=== PATIENT | female | born 1945 | race Caucasian/White ===

== ENCOUNTER 2024-03-09 05:33 | Inpatient (IN) | payer MEDICARE, MEDICAID, SELFPAY ==
[2024-03-09] VITALS (21 sets, daily range): BP systolic 134–196; BP diastolic 55–119; PULSE 68–125; RESP 16–30; TEMP 36.6–39.1; O2SAT 98–100
--- NOTE | 2024-03-09 | ECHO_ITS ---
Patient Info Name: Camila Sung Age: 78 years : 1945 Gender: Female Ht: 61 in Wt: 177 lbs BSA: 1.89 m2 HR: 112 bpm BP: 140 / 74 mmHg Heart Rhythm: Sinus Rhythm Technical Quality: Fair Exam Date: 03/09/2024 11:30 AM Exam Location: Echo Lab Patient Status: Inpatient Admit Date: 03/09/2024 Staff Ordering Physician: Orestes Arnold MD Sanforizing Machine Operator: Ac King RDCS Attending Provider: Zay Eckert MD Exam Type: CA echo dop color flow w con Study Info Indications - Abnormal EKG Complete two-dimensional, color flow and Doppler transthoracic echocardiogram is performed with contrast to opacify the left ventricle and to improve the deliniation of the left ventricle endocardial borders. Contrast/Agitated Saline Contrast/Ag. Saline: Definity Amount: 3.00 ml Existing IV Access: Yes Summary 1. Normal left ventricular size with vigorous systolic function and grade 1 diastolic noncompliance. 2. Borderline left atrial enlargement. 3. Normal aortic and mitral valve. Left Ventricle Left ventricular chamber dimension is normal. Left ventricular systolic function is normal, estimated at 65-70%. The left ventricular diastolic function is grade I diastolic dysfunction. Right Ventricle Right ventricular chamber dimension is normal. Left Atria Left atrial chamber dimension is mildly enlarged. Right Atria Right atrial chamber dimension is normal. Aortic Valve The aortic valve is normal. Pulmonic Valve The pulmonic valve is normal. Mitral Valve The mitral valve has normal leaflets. Tricuspid Valve The tricuspid valve leaflets are normal. There is mild tricuspid valve regurgitation. Moderate pulmonary hypertension, estimated pulmonary arterial systolic pressure is Empty. Pericardium/Pleural The pericardium appears normal. Aorta The aortic root size at the sinus of Valsalva is normal. Left Ventricular Outflow Tract Name Value Normal LVOT 2D LVOT Diameter 1.88 cm LVOT Doppler LVOT Peak Gradient 16 mmHg LVOT Mean Gradient 9 mmHg LVOT VTI 30.58 cm LVOT VTI/AV VTI Ratio 0.81 LVOT Stroke Volume 84.76 ml LVOT CO 9.90 l/min LVOT CI 5.23 L/min/m2 Pulmonic Valve Name Value Normal PV Doppler PV Peak Gradient 10 mmHg Mitral Valve Name Value Normal MV Doppler MV Peak Gradient 11 mmHg MV Mean Gradient 6 mmHg MV Decel Ritchie 465.01 cm/s2 MV PHT
--- NOTE | ~2024-03-09 | CT_ITS ---
CT head without contrast Indication: Altered mental status Technique: Serial scans were obtained through the brain without the administration of contrast. Dose reduction technique was used on this scan by utilizing automated exposure control and iterative recon struction technique. The dose-length product (DLP) was 605.33 mGy-cm. Findings: There is no evidence of intracranial hemorrhage, mass lesion, or acute infarct. The ventri cles and subarachnoid spaces are dilated, consistent with mild atrophy. Low attenuation regions are seen within the periventricular white matter bilaterally, likely representing changes from chronic mi crovascular ischemic disease. There is no evidence of edema, mass effect or midline shift. The visu alized paranasal sinuses and mastoid air cells are clear. Impression: No intracranial hemorrhage, mass, or acute infarct. Atrophy and chronic white matter changes, as above. Reviewed, dictated and finalized at location . Impression: No intracranial hemorrhage, mass, or acute infarct. Atrophy and chronic white matter changes, as above.
--- NOTE | ~2024-03-09 | CT_ITS ---
Clinical Indication: Altered mental status CT Scan of the Chest, Abdomen, and Pelvis with Contrast: Technique: Contiguous sections were acquired throughout the chest, abdomen, and pelvis after intraven ous administration of 100 cc of Omnipaque 350. Dose reduction technique was used on this scan by uti lizing automated exposure control and iterative reconstruction technique. The dose-length product (DL P) was 1498.94 mGy-cm. Findings: There is no evidence of any significant mediastinal, hilar or axillary lymphadenopathy. Extensive cor onary artery calcifications are present. No aortic aneurysm or dissection seen. There is no evidence of pleural or pericardial effusion. The lungs are clear. No pulmonary nodules or infiltrates are noted. The liver, spleen, pancreas, and adrenal glands are within normal limits. Cholecystectomy clips are p resent. There is minimal fullness of the bilateral renal collecting systems. Small bilateral nonobstr ucting renal stones are present. No ureteral stone identified in either side. There are atherosclerot ic calcifications of the aorta. No lymphadenopathy. No bowel obstruction or bowel wall thickening. There is no evidence to suggest acute appendicitis. Urinary bladder is prominently distended, but otherwise unremarkable. There is apparent fluid distent ion of prominent thickening of the endometrial stripe/cavity. There is a 3.6 cm hypodense right-sided uterine mass versus adnexal lesion. Impression: Prominent fluid distention versus thickening of the endometrial stripe/cavity. Additional 3.6 cm hypo dense right-sided uterine mass versus adnexal lesion. Uterine neoplasm is not excluded. Pelvic ultras ound recommended for further evaluation. Small bilateral nonobstructing renal stones. Reviewed, dictated and finalized at [facility]. Impression: Prominent fluid distention versus thickening of the endometrial stripe/cavity. Additional 3.6 cm hypodense right-sided uterine mass versus adnexal lesion. [place] rine neoplasm is not excluded. Pelvic ultrasound recommended for further evalua tion. Small bilateral nonobstructing renal stones.
--- NOTE | ~2024-03-09 | US_ITS ---
US pelvic limited Ordering provider: Orestes Arnold MD History: . Uterine mass . Comparison: None. Technique: Transabdominal ultrasound of the pelvis (Doppler ultrasound interrogation techniques used as needed for this exam.) FINDINGS: CERVIX: Normal. UTERUS: Measures 8.2x 3.5x 4.3 cm in length which is within normal limits and is anteverted. No myom etrial masses. ENDOMETRIUM: Normal in thickness measuring 15 mm. No endometrial masses, cysts or fluid. CUL DE SAC: No free fluid. RIGHT OVARY: Normal in size measuring 3x 1.9x 2.5 cm. Normal echotexture. Doppler vascular flow prese nt. LEFT OVARY: Normal in size measuring 2.2x 1.5x 1.9 cm. Normal echotexture. Doppler vascular flow pres ent. ADNEXA: A mass is seen measuring 4.1 x 3.8 x 3.5 centimeters. Calcification is seen. The mass appears near to the cervix possibility of connection to the service is not excluded. IMPRESSION: Right adnexal mass measuring 4.1 x 3.8 x 3.5 cm. calcification is seen in the mass. The mass appears near to the cervix possibility of connection to the service is not excluded. Clinical correlation and follow-up advised. Thickened endometrium. Further evaluation advised. Reviewed, dictated and finalized at location A. IMPRESSION: Right adnexal mass measuring 4.1 x 3.8 x 3.5 cm. calcification is seen in the m ass. The mass appears near to the cervix possibility of connection to the servi ce is not excluded. Clinical correlation and follow-up advised. Thickened endometrium. Further evaluation advised.
--- NOTE | ~2024-03-09 | XR_ITS ---
Portable chest x-ray Comparison: None Clinical History: Altered mental status Findings: Lungs are clear, without focal consolidation or pleural effusion. Cardiomediastinal silho uette is mildly prominent, possibly due to AP technique. Bones and soft tissues are unremarkable. Impression: Clear lungs. Reviewed, dictated and finalized at location . Impression: Clear lungs.
[2024-03-09 05:44] LABS: Glucose Point of Care > 500 mg/dl (65-105)
[2024-03-09] MEDS: HALOPERIDOL LACTATE 5 MG/ML VIAL 2.5 MG IM (05:48)
--- NOTE | 2024-03-09 05:50 | ED.AMS ---
HPI - Altered Mental Status General Chief Complaint: Altered Mental Status Stated Complaint: altered mental status, high blood sugar Time Seen by Provider: 03/09/24 05:35 History of Present Illness HPI narrative: 78-year-old female presenting to the emergency department for evaluation for altered mental status. Patient is diabetic and lives with her sister. EMS states that the sister called due to the patient being more confused and being unable to give her her insulin. Patient did not receive any insulin today. Patient did have a glucose stick of 590 by EMS. Upon arrival to the emergency department patient is irritated and combative. Patient is unwilling to participate in the exam. Related Data Allergies Allergy/AdvReac Type Severity Reaction Status Date / Time No Known Allergies Allergy Verified 03/09/24 07:17 Review of Systems Review of Systems: All systems reviewed & are unremarkable except as noted in HPI and below PMFSH Past Medical History Medical History Diabetes mellitus Social History Social History Spiritual care concerns: No Exam Narrative: APPEARANCE: Confused. HEAD: normocephalic, atraumatic. EYES: PERRLA/EOMI, conjunctivae clear. NOSE: Normal no drainage EARS:TMS clear with good light reflex. THROAT: Pharynx clear, no exudate. NECK: Supple. No adenopathy, no masses. RESPIRATORY: Airway patent, respirations nonlabored. Clear to auscultation bilaterally, no rales, rhonchi, wheezing. CARDIOVASCULAR: Regular rate and rhythm without murmurs rubs or gallops. ABDOMINAL: Soft, nontender, nondistended, normal bowel sounds MUSCULOSKELETAL: Moves all extremities. Strength/ROM intact, No edema, No calf tenderness. NEURO: Alert. Cranial nerves II through XII intact. Grossly intact SKIN: Warm, dry. Normal Color Course Vital Signs Vital signs: Vital Signs Temperature 102.1 F H 03/09/24 05:35 Temperature 97.1 F L 03/13/24 05:43 Pulse Rate 69 03/13/24 05:43 Respiratory Rate 16 03/13/24 05:43 Blood Pressure 165/60 H 03/13/24 05:43 Pulse Oximetry 100 03/13/24 05:43 Oxygen Delivery Room Air 03/13/24 08:20 Fraction of Inspired Oxygen 21 03/10/24 10:27 MDM - Altered Mental Status MDM Narrative Medical decision making narrative: 78-year-old female presented emergency department for evaluation for altered mental status. Patient is diabetic and patient arrives to emergency department in DKA. Patient was treated with IV fluids and started on insulin bolus and insulin infusion. Patient did have a low-grade fever upon arrival to the emergency department. Patient has no leukocytosis and a stable hemoglobin of 12.5. Patient did have hyponatremia and hyperkalemia along with ROSALIND. Case was discussed with the restorer lace and textiles the patient was accepted to the ICU. Prior to the ICU they requested imaging brain chest abdomen pelvis. At time of sign-out this imaging is pending. Differential Diagnosis Differential diagnosis: Likely altered mental status and sepsis Lab Data Attestation: I reviewed the patient's lab results. 03/13/24 05:55 03/13/24 05:55 Labs: Lab Results 03/09/24 03/09/24 03/09/24 Range/Units 05:42 05:59 06:05 WBC 7.1 (4.5-10.0) K/mm3 RBC 4.13 L (4.2-5.4) M/mm3 Hgb 12.5 (12.0-15.0) g/dL Hct 38.9 (37.0-47.0) % MCV 94.2 (80-100) fl MCH 30.3 (26-34) pg MCHC 32.1 (32-36) g/dl RDW 15.2 H (11.5-14.5) % Plt Count 177 (150-375) k/mm3 MPV 12.9 H (7.4-10.4) fl Immature Gran % (Auto) 0.6 H (0-0.5) % Neut % (Auto) 78.9 H (45.5-73.1) % Lymph % (Auto) 15.7 L (18.3-44.2) % [place] % (Auto) 4.1 (2.6-8.5) % Eos % (Auto) 0.1 (0-4.4) % Baso % (Auto) 0.6 (0.2-1.2) % Lymph # (Auto) 1.11 (0.9-3.2) K/mm3 [place] # (Auto) 0.3 (0.1-0.6) K/mm3 Eos # (Auto) 0.0
[2024-03-09] MEDS: ACETAMINOPHEN 650 MG SUPPOSITORY RECTAL (05:57)
[2024-03-09] MEDS: SODIUM CHLORIDE 0.9% IV 1,000 ML 999 ML IV CONT (06:10)
[2024-03-09 06:13] LABS: Basophils Percent Auto 0.6 % (0.2-1.2); Eosinophils Percent Auto 0.1 % (0-4.4); Hematocrit 38.9 % (37.0-47.0); Hemoglobin 12.5 g/dL (12.0-15.0); Immature Granulocyte Absolute 0.04 K/mm3 (0.00-0.031); Immature Granulocyte Percent A 0.6 % (0-0.5); Immature Platelet Fraction Pct 10.1 % (0.9-11.2); Lymphocytes Absolute Auto 1.11 K/mm3 (0.9-3.2); Lymphocytes Percent Auto 15.7 % (18.3-44.2); Mean Corpuscular HGB Conc 32.1 g/dl (32-36); Mean Corpuscular Hemoglobin 30.3 pg (26-34); Mean Corpuscular Volume 94.2 fl (80-100); Mean Platelet Volume 12.9 fl (7.4-10.4); Monocytes Absolute Auto 0.3 K/mm3 (0.1-0.6); Monocytes Percent Auto 4.1 % (2.6-8.5); Neutrophils Absolute Auto 5.6 K/mm3 (1.3-6.7); Neutrophils Percent Auto 78.9 % (45.5-73.1); Platelet Count Result 177 k/mm3 (150-375); Red Blood Count 4.13 M/mm3 (4.2-5.4); Red Cell Distribution Width 15.2 % (11.5-14.5); White Blood Count 7.1 K/mm3 (4.5-10.0)
--- NOTE | 2024-03-09 06:23 | ECG_ITS ---
Test Date: 2024-03-09 06:25:25 Measurements Intervals [place] Rate: 122 P: 89 GA: 153 QRS: -19 QRSD: 91 T: 120 QT: 196 QTc: 280 Interpretive Statements SINUS OR ECTOPIC ATRIAL TACHYCARDIA ST-T WAVE ABNORMALITY IN ANTEROLAT/HIGH LAT LEADS- CONSIDER ISCHEMIA BASELINE ARTIFACT- I, II, III, AVF, V1-V3 ABNORMAL ECG No previous ECG available for comparison Electronically Signed On 03-09-2024 08:37:26 CDT by Tay Mcdonald D.O.
[2024-03-09 06:25] LABS: Beta-Hydroxybutyrate/Acetoacetate 4.14 mmol/L (0.02-0.27)
[2024-03-09 06:27] LABS: Alanine Aminotransferase 14 U/L (6-35); Albumin Level 4.5 g/dL (3.5-5.1); Alkaline Phosphatase 242 U/L (38-126); Anion Gap 23 mmol/L (4-12); Aspartate Amino Transferase 25 U/L (14-36); Blood Urea Nitrogen 18 mg/dL (7-17); Calcium 9.1 mg/dL (8.4-10.2); Carbon Dioxide 13 mmol/L (22-30); Chloride 96 mmol/L (98-107); Estimated CRCL calculation 31 ml/min; Estimated Glomerular Filt Rate 40; Potassium 5.1 mmol/L (3.4-5.0); Sodium 132 mmol/L (137-145)
--- NOTE | 2024-03-09 06:28 | PC.NURSE ---
Upon arrival to ED patient was combative and thrashing and swatting at staff and EMS. Patient was uncooperative with getting vitals, set up on the ophthalmic surgeon, and removed her IV that EMS had placed. Patient stated come on , I want to leave , and fuck off . Patient would not sit still as nursing staff asked for cooperation. Patient appeared alert to voice, but not making any sense in speech. EDP Dr. Hernandez notified who VRBO 2.5mg Haldol IM. Patient was given Haldol in the right thigh at 0548. Patient still was uncooperative with staff and still thrashing and swatting at staff. At [address] Hernandez VRBO soft restraints as patient was still uncooperative and combative and vitals were yet to be obtained. Patient placed in soft restraints bi-lateral ankle and wrists.
[2024-03-09 06:29] LABS: INR 0.9; Prothrombin Time 12.6 Seconds (11.1-14.7)
[2024-03-09 06:32] LABS: Appearance Urine Clear (Clear); Bacteria Urine None Seen /hpf; Bilirubin Urine Negative (Negative); Blood Urine 2+ (Negative); Color Urine Yellow (Yellow); Glucose Urine UA 3+ mg/dL (Negative); Ketones Urine 1+ mg/dL (Negative); Leukocyte Esterase Ur Negative LEU/UL (Negative); Nitrate Urine Negative (Negative); Non Pathogenic Casts 0-2; Protein Urine Negative (Negative); Specific Grav Ur 1.021 (1.001-1.035); Squamous Epithelial Cell Urine None Seen /hpf (Few); Urobilinogen Urine 0.2 mg/dL (<2.0); WBC Urine 0-5 /hpf (0-3)
[2024-03-09 06:36] LABS: Add Urine Microscopic? YES
[2024-03-09 06:37] LABS: Glucose 750 mg/dL (65-110)
[2024-03-09] MEDS: INSULIN HUMAN REGULAR (*BKC) 100 UNITS/ML IV PUSH (06:44)
[2024-03-09 06:48] LABS: Lactic Acid Reflex 5.9 mmol/L (0.7-2.0)
[2024-03-09] MEDS: SODIUM CHLORIDE 0.9% IV 1,000 ML 150 ML IV CONT (06:49)
[2024-03-09] MEDS: INSULIN HUMAN REGULAR (*BKC) 100 UNITS in SODIUM CHLORIDE 0.9% IV 99 ML 8 UNITS IV CONT (07:08)
[2024-03-09 07:41] LABS: Phosphorus 3.2 mg/dL (2.5-4.5)
[2024-03-09 07:50] LABS: Anion Gap 23 mmol/L (4-12); Blood Urea Nitrogen 17 mg/dL (7-17); Calcium 8.8 mg/dL (8.4-10.2); Carbon Dioxide 13 mmol/L (22-30); Chloride 102 mmol/L (98-107); Estimated CRCL calculation 31 ml/min; Estimated Glomerular Filt Rate 40; Glucose 644 mg/dL (65-110); Potassium 4.3 mmol/L (3.4-5.0); Sodium 138 mmol/L (137-145)
[2024-03-09 08:15] LABS: Influenza A QL RT-PCR Negative (Negative); Influenza B QL RT-PCR Negative (Negative); RSV RNA, RT-PCR Negative (Negative); SARS-CoV-2 RNA PCR Negative (Negative)
[2024-03-09 08:31] LABS: Hemoglobin A1C > 14.0 % (<5.7)
[2024-03-09 08:50] LABS: Glucose Point of Care > 500 mg/dl (65-105)
[2024-03-09 08:53] LABS: Procalcitonin 0.1 ng/mL
[2024-03-09 09:16] LABS: Reflex Lactic Acid Yes or No Add Lactic
--- NOTE | 2024-03-09 09:19 | WPDCNINT ---
Assessment and Plan Assessment and plan (1) DKA (diabetic ketoacidosis): Code(s): E11.10 - Type 2 diabetes mellitus with ketoacidosis without coma Status: Acute Assessment and Plan: Patient presented with DKA with elevated beta hydroxybutyrate fine gap and blood glucose Patient was given 1 L IVF bolus and started on infusion. I will give additional 1 L bolus Patient will be started on Insulin infusion and Q1H glucose monitoring will be done Serial labs ordered Replace electrolytes as needed (2) Altered mental status: Code(s): R41.82 - Altered mental status, unspecified Status: Acute Assessment and Plan: Patient at this time is confused agitated uncooperative although she is awake and moves all [address] was negative Appears to be likely toxic metabolic encephalopathy. I am not aware of what medications patient states at this time Check TSH, urine drug screen Start Precedex at this time for agitation Physical restraints for patient's and staff's safety until patient is calm and cooperative (3) ROSALIND (acute kidney injury): Code(s): N17.9 - Acute kidney failure, unspecified Status: Acute Assessment and Plan: Presented with creatinine of 1.3 Baseline creatinine unknown. Past medical history unknown Will give IV fluids and check CK level Check renal ultrasound Monitor urine output electrolytes and creatinine Place Dougherty catheter for accurate I&Os and patient's mental status (4) Uterine mass: Code(s): N85.8 - Other specified noninflammatory disorders of uterus Status: Acute Assessment and Plan: Will obtain pelvic ultrasound (5) Sepsis: Code(s): A41.9 - Sepsis, unspecified organism Status: Acute Assessment and Plan: Patient met criteria for sepsis presentation although this could be just SIRS. She was febrile in ER and has elevated lactic acidosis No other objective evidence infection at this time UA was negative and CT scan did not show any evidence of pneumonia. Procalcitonin level was low Lactic acidosis can be secondary to metformin Blood cultures have been sent and are pending Will start empiric antibiotics at least for 48 hours until culture is also back Vancomycin and cefepime (6) Abnormal EKG: Code(s): R94.31 - Abnormal electrocardiogram [ECG] [EKG] Status: Acute Assessment and Plan: EKG reviewed Check echo and serial troponins Plan DVT prophylaxis -Lovenox Stress ulcer prophylaxis -Protonix Nutrition - npo Code Status -patient is DNR and DNI as per patient's sisters assessment of her wishes which she has communicated to her in the past multiple times. Total Critical Care Time -40 minutes Due to a high probability of clinically significant, life threatening deterioration, the patient required my highest level of preparedness to intervene emergently and I personally spent this critical care time directly and personally managing the patient. This critical care time included obtaining a history; examining the patient; pulse oximetry; ordering and review of studies; arranging urgent treatment with development of a management plan; evaluation of patient's response to treatment; frequent reassessment; and discussions with other providers. It was exclusive of separately billable procedures and treating other patients and teaching time. Please see Assessment and Plan section and the rest of the note for further information on patient assessment and treatment Conversion Worker Consult Note Consult date: 03/09/24 Reason for consult: DKA, sepsis, altered mental status HPI: Camila Sung is a 78 year old female with past medical history of diabetes was brought by her sister to the hospital with altered mental status and high blood sugars. Patient is unable to provide any meaningful history. I called the cell phone number listed for her sister's contact but no answer hence history is obtained from physician sign-out
[2024-03-09 09:44] LABS: Lactic Acid 4.7 mmol/L (0.7-2.0)
[2024-03-09 09:54] LABS: Glucose Point of Care 405 mg/dl (65-105)
[2024-03-09 09:56] LABS: Creatine Kinase 43 U/L (30-135)
[2024-03-09 10:03] LABS: Troponin I < 0.012 ng/mL (0.000-0.034)
--- NOTE | 2024-03-09 10:30 | PC.NURSE ---
This patient, Camila Sung, was admitted to Intensive Care Unit-2. Patient/family oriented to hospital policies and general routines including ID bracelet, bed and alarms, visiting hours, pain management, procedures, bathroom and other care routines, personal items, smoking policy, room service/diet, and visiting hours. Information on how to activate the Rapid Response Team has been discussed. Patient/Family are encouraged to report perceived risks to care and to ask questions if they do not understand what they are told or what they should do.
--- NOTE | 2024-03-09 10:35 | PC.NURSE ---
pt arrived to floor with insulin drip running at 8units/hr, no titration was made by HEADER DOCK based on latest blood sugar; pt not alert and oriented, only occasionally nods yes or no to questions
[2024-03-09] MEDS: LACTATED RINGERS 1,000 ML 999 ML IV CONT (10:48)
[2024-03-09] MEDS: CEFEPIME 2 GM/NS 50 ML 2 GM/50 ML BAG IVPB (10:50)
[2024-03-09 11:07] LABS: Amphetamine Screen Urine Negative (Negative); Barbiturate Screen Urine Negative (Negative); Benzodiazepines Screen Urine Negative (Negative); Cannabinoid Screen Urine Negative (Negative); Cocaine Screen Urine Negative (Negative); Methadone Screen Urine Negative (Negative); Opiate Screen Urine Negative (Negative); Phencyclidine Screen Urine Negative (Negative)
[2024-03-09 11:10] LABS: Glucose Point of Care 323 mg/dl (65-105)
[2024-03-09] MEDS: VANCOMYCIN 2,000 MG/NS 500 ML 2,000 MG/500 ML BAG 250 MG IVPB (11:19)
[2024-03-09 11:46] LABS: Lipase 137 U/L (23-300)
[2024-03-09] MEDS: PERFLUTREN LIPID MICROSPHERES 1.5 ML VIAL DILUTED TO 10 ML TOTAL VOLUME IV PUSH (11:53)
--- NOTE | 2024-03-09 11:54 | IVDEFINITY ---
Prior to administration of IV Definity the patient was educated on the risks and benefits of the imaging enhancing agent including potential adverse side effects. The patient verbalized understanding. Allergies were verified. No exclusion criteria were identified and at least one of the following inclusion criteria were met: 1) physician request, 2) patient technically difficult to image (per the [place] [employer] guidelines of two or more segments not discernable within the apical view), or 3) questionable left ventricular function. ?
[2024-03-09 12:08] LABS: Glucose Point of Care 228 mg/dl (65-105)
[2024-03-09 12:25] LABS: MRSA (PCR) DETECTED (NOT DETECTE)
[2024-03-09 12:57] LABS: Anion Gap 12 mmol/L (4-12); Blood Urea Nitrogen 15 mg/dL (7-17); Calcium 8.5 mg/dL (8.4-10.2); Carbon Dioxide 17 mmol/L (22-30); Chloride 110 mmol/L (98-107); Estimated CRCL calculation 40 ml/min; Estimated Glomerular Filt Rate 54; Glucose 199 mg/dL (65-110); Phosphorus 1.7 mg/dL (2.5-4.5); Potassium 3.8 mmol/L (3.4-5.0); Sodium 139 mmol/L (137-145)
[2024-03-09 13:09] LABS: Glucose Point of Care 156 mg/dl (65-105)
[2024-03-09] MEDS: KCL 20 MEQ/D5/0.45% SOD CHL 1,000 ML 150 ML IV CONT (13:15)
[2024-03-09] MEDS: INSULIN GLARGINE (*BKC) 100 UNITS/ML 15 UNITS SUB-Q (13:35)
--- NOTE | 2024-03-09 13:55 | PC.NURSE ---
Addendum entered by Tiffanie Macario RN 03/09/24 13:58: home med rec at this time was done from the external med history Original Note: pt not alert and oriented; attempted to obtain medical history from sister, Caty Dai, but also poor historian. Caty did state that Camila has a history noncompliance with her health care. Per Dr. Arnold's request, awaiting medical records from primary physician and [facility]
[2024-03-09] MEDS: SODIUM CHLORIDE 0.45% 1,000 ML 100 ML IV CONT ×2 (14:36→23:41)
[2024-03-09] MEDS: POTASSIUM PHOS,M-BASIC-D-BASIC 20 MMOL in SODIUM CHLORIDE 0.9% IV 250 ML 64.17 MMOL IVPB (14:37)
[2024-03-09 14:46] LABS: Glucose Point of Care 173 mg/dl (65-105)
--- NOTE | 2024-03-09 15:19 | PM.IMHP ---
H&P: HPI History of Present Illness Date/Time: 03/09/24 15:19 Chief Complaint: Altered mental status Narrative: [age]-year-old female presented to the ER with altered mental status. Patient diabetic and less with the sister. EMS was called a sister found her more confused and was unable to give her her insulin. Her glucose stick by EMS was 590. Patient was irritative and combative in the ER. She was tachycardic and hypertensive and febrile. Laboratory evaluation showed normal WBC hemoglobin was 12.5 blood sugar on BMP was 750. Mildly hyponatremic at 1:32 a.m. acidotic at 13 creatinine 1.3. Lactic acid was 5.9. Was 4.1. Most of the history is taken from medical records patient received IV fluid bolus and started on IV insulin and was admitted to the ICU for further treatment. Review of Systems Review of Systems: ROS unobtainable: Yes unobtainable due to medical condition PMFSH Past Medical History Medical History Diabetes mellitus Social History Social History Spiritual care concerns: No Meds Home Medications and Allergies Home Medications Medication Instructions Recorded Confirmed Type atorvastatin 10 mg tablet 10 mg PO DAILY 03/09/24 03/09/24 History insulin glargine 100 unit/mL (3 10 unit subcut HS 03/09/24 03/09/24 History mL) subcutaneous pen (Lantus Solostar U-100 Insulin) insulin lispro 100 unit/mL 3 unit subcut TIDWM 03/09/24 03/09/24 History subcutaneous pen (Humalog KwikPen (U-100) Insulin) losartan 100 mg tablet 50 mg PO DAILY 03/09/24 03/09/24 History Allergies Allergy/AdvReac Type Severity Reaction Status Date / Time No Known Allergies Allergy Verified 03/09/24 07:17 Vital Signs Vital Signs - 24 hr 03/09/24 05:35 03/09/24 06:07 03/09/24 06:08 Temperature 102.1 F H Pulse Rate 125 H 121 H Respiratory Rate 23 H Blood Pressure 187/117 H Pulse Oximetry Oxygen Delivery 03/09/24 06:09 03/09/24 06:12 03/09/24 06:16 Temperature 100.9 F H Pulse Rate 117 H Respiratory Rate 18 Blood Pressure 192/77 H Pulse Oximetry 100 100 100 Oxygen Delivery Room Air 03/09/24 06:31 03/09/24 06:27 03/09/24 06:46 Temperature 98 F 98 F 98.1 F Pulse Rate 119 H 124 H Respiratory Rate 26 H 25 H Blood Pressure 163/119 H 174/96 H Pulse Oximetry 99 100 Oxygen Delivery 03/09/24 07:03 03/09/24 07:45 03/09/24 08:46 Temperature 98.4 F Pulse Rate 125 H 125 H 108 H Respiratory Rate 20 30 H 24 H Blood Pressure 196/72 H 171/83 H 169/72 H Pulse Oximetry 100 100 99 Oxygen Delivery 03/09/24 09:56 03/09/24 10:45 03/09/24 11:44 Temperature 98.6 F 102.3 F H Pulse Rate 112 H 105 H Respiratory Rate 23 H 24 H Blood Pressure 140/74 138/64 Pulse Oximetry 98 99 99 Oxygen Delivery Room Air 03/09/24 12:00 03/09/24 12:00 03/09/24 14:00 Temperature 101.1 F H Pulse Rate 105 H 104 H 102 H Respiratory Rate 20 Blood Pressure 154/59 H Pulse Oximetry 100 Oxygen Delivery 03/09/24 14:00 Temperature 100.6 F H Pulse Rate 102 H Respiratory Rate 16 Blood Pressure 144/71 H Pulse Oximetry 100 Oxygen Delivery Exam Narrative: General: Pt is awake, agitated and uncooperative. She is physically restrained and fights the exam Lungs/Chest: Trachea central Clear BS B/L, No crackles or wheezing. Cardiac: RRR tachycardia. Normal S1 S2. No murmurs Circulation: Pedal pulses are intact and symmetrical. Abdomen: Normal bowel sounds.. Obese Soft. NT. ND. Extremities: No clubbing, cyanosis or edema. Warm : Dougherty in place Neurologic: Patient is confused awake agitated, physically restrained and she moves all 4 extremities but does not follow any commands. She does not answer any questions, she is not cooperative exam and withdraws her head and closesher eyes on during the examination PERRL no nuchal rigidity Skin: No Rash H&P: R
[2024-03-09 16:46] LABS: Anion Gap 10 mmol/L (4-12); Blood Urea Nitrogen 14 mg/dL (7-17); Calcium 7.8 mg/dL (8.4-10.2); Carbon Dioxide 19 mmol/L (22-30); Chloride 109 mmol/L (98-107); Estimated CRCL calculation 40 ml/min; Estimated Glomerular Filt Rate 54; Glucose 212 mg/dL (65-110); Potassium 3.9 mmol/L (3.4-5.0); Sodium 138 mmol/L (137-145)
[2024-03-09 17:03] LABS: Troponin I 0.058 ng/mL (0.000-0.034)
[2024-03-09 17:09] LABS: Glucose Point of Care 222 mg/dl (65-105)
[2024-03-09] MEDS: INSULIN ASPART (*BKC) 100 UNITS/ML SUB-Q ×3 (17:14→23:41)
[2024-03-09 20:26] LABS: Glucose Point of Care 243 mg/dl (65-105)
[2024-03-09] MEDS: CEFEPIME 1 GM/NS 50 ML 1 GM/50 ML BAG IVPB (20:54)
[2024-03-09] MEDS: ACETAMINOPHEN 325 MG TABLET 650 MG PO (21:10)
[2024-03-09 23:13] LABS: Troponin I 0.061 ng/mL (0.000-0.034)
[2024-03-09 23:45] LABS: Glucose Point of Care 219 mg/dl (65-105)
[2024-03-10] VITALS (11 sets, daily range): BP systolic 124–177; BP diastolic 52–72; PULSE 60–83; RESP 13–20; TEMP 36.2–37.1; O2SAT 99–100; BMI 34.1
[2024-03-10 04:13] LABS: Basophils Percent Auto 0.6 % (0.2-1.2); Eosinophils Absolute Auto 0.1 K/mm3 (0-0.3); Eosinophils Percent Auto 1.9 % (0-4.4); Hemoglobin 9.9 g/dL (12.0-15.0); Immature Granulocyte Absolute 0.03 K/mm3 (0.00-0.031); Immature Granulocyte Percent A 0.4 % (0-0.5); Lymphocytes Absolute Auto 1.96 K/mm3 (0.9-3.2); Mean Corpuscular HGB Conc 31.9 g/dl (32-36); Mean Corpuscular Hemoglobin 30.4 pg (26-34); Mean Corpuscular Volume 95.1 fl (80-100); Mean Platelet Volume 12.8 fl (7.4-10.4); Monocytes Absolute Auto 0.7 K/mm3 (0.1-0.6); Monocytes Percent Auto 9.7 % (2.6-8.5); Neutrophils Absolute Auto 4.2 K/mm3 (1.3-6.7); Neutrophils Percent Auto 59.4 % (45.5-73.1); Platelet Count Result 142 k/mm3 (150-375); Red Blood Count 3.26 M/mm3 (4.2-5.4); Red Cell Distribution Width 15.7 % (11.5-14.5)
[2024-03-10 04:29] LABS: Alanine Aminotransferase 8 U/L (6-35); Albumin Level 2.6 g/dL (3.5-5.1); Alkaline Phosphatase 70 U/L (38-126); Anion Gap 8 mmol/L (4-12); Aspartate Amino Transferase 16 U/L (14-36); Bilirubin,Total 0.4 mg/dL (0.2-1.3); Blood Urea Nitrogen 13 mg/dL (7-17); Calcium 7.6 mg/dL (8.4-10.2); Carbon Dioxide 18 mmol/L (22-30); Chloride 110 mmol/L (98-107); Estimated CRCL calculation 44 ml/min; Estimated Glomerular Filt Rate > 60; Glucose 209 mg/dL (65-110); Magnesium 1.9 mg/dL (1.6-2.3); Phosphorus 3.4 mg/dL (2.5-4.5); Potassium 3.6 mmol/L (3.4-5.0); Sodium 136 mmol/L (137-145)
[2024-03-10] MEDS: INSULIN ASPART (*BKC) 100 UNITS/ML SUB-Q ×6 (04:34→16:57)
[2024-03-10 08:02] LABS: Glucose Point of Care 243 mg/dl (65-105)
--- NOTE | 2024-03-10 08:30 | WPDINTPN ---
Progress Note: A&P Assessment and Plan (1) DKA (diabetic ketoacidosis): Code(s): E11.10 - Type 2 diabetes mellitus with ketoacidosis without coma Status: Acute Assessment and Plan: 03/09: Patient presented with DKA with elevated beta hydroxybutyrate fine gap and blood glucose -received total 2 L IV fluids, was started on insulin infusion per DKA protocol -patient was transition to long-acting insulin and sliding scale insulin the overnight. Given her mental status changes, IV fluids will continue. -this morning patient is more awake, alert, oriented - replace potassium -patient is on Lantus and sliding scale insulin -will increase Lantus -hemoglobin A1c is >14.0 this admission (2) Altered mental status: Code(s): R41.82 - Altered mental status, unspecified Status: Acute Assessment and Plan: RESOLVED. Altered mental status/encephalopathy likely related to metabolic encephalopathy/hyperglycemia 03/09: Patient at this time is confused agitated uncooperative although she is awake and moves all [address] was negative Appears to be likely toxic metabolic encephalopathy. I am not aware of what medications patient states at this time Check TSH, urine drug screen -Precedex was ordered but was not started as patient was more awake, calm, not agitated -off restraints (3) ROSALIND (acute kidney injury): Code(s): N17.9 - Acute kidney failure, unspecified Status: Acute Assessment and Plan: Presented with creatinine of 1.3 Baseline creatinine unknown. Past medical history unknown Patient received adequate IV fluids, CK levels were normal 03/10: Creatinine has normalized Monitor urine output electrolytes and creatinine Place Dougherty catheter for accurate I&Os and patient's mental status (4) Uterine mass: Code(s): N85.8 - Other specified noninflammatory disorders of uterus Status: Acute Assessment and Plan: Will obtain pelvic ultrasound (5) Sepsis: Code(s): A41.9 - Sepsis, unspecified organism Status: Acute Assessment and Plan: Patient met criteria for sepsis presentation although this could be just SIRS. She was febrile in ER and has elevated lactic acidosis No other objective evidence infection at this time UA was negative and CT scan chest abdomen and pelvis did not show any evidence of pneumonia. Procalcitonin level was low Lactic acidosis can be secondary to metformin 03/09: Blood cultures pending Patient started on antibiotics, vancomycin and (03/09) will deescalate once blood cultures have resulted (6) Abnormal EKG: Code(s): R94.31 - Abnormal electrocardiogram [ECG] [EKG] Status: Acute Assessment and Plan: EKG reviewed -serial troponins were slightly elevated but flat, this could be related to sepsis -EKG showed ST-T changes in anterolateral leads -will repeat EKG this morning -will have Cardiology evaluate the patient as patient has risk factors of diabetes, essential hypertension, hyperlipidemia (7) Essential hypertension: Code(s): I10 - Essential (primary) hypertension Status: Acute Assessment and Plan: Essential hypertension -restart home losartan (8) Hyperlipidemia: Code(s): E78.5 - Hyperlipidemia, unspecified Status: Acute Assessment and Plan: Continue home atorvastatin Plan DVT prophylaxis -Lovenox Stress ulcer prophylaxis -Protonix Nutrition -will start diabetic diet Code Status -patient is DNR and DNI as per patient's sisters assessment of her wishes which she has communicated to her in the past multiple times. Total Critical Care Time -33 minutes Due to a high probability of clinically significant, life threatening deterioration, the patient required my highest level of preparedness to intervene emergently and I personally spent this critical care time directly and personally managing the patient. This critical care time included obtaining a history; examin
--- NOTE | 2024-03-10 08:42 | ECG_ITS ---
Test Date: 2024-03-10 10:03:04 Measurements Intervals [place] Rate: 68 P: 3 [place]: 133 QRS: 9 QRSD: 99 T: 44 QT: 426 QTc: 453 Interpretive Statements SINUS RHYTHM NONSPECIFIC T-WAVE ABNORMALITY- LATERAL LEADS BASELINE ARTIFACT- I, III, AVR, AVL, AVF, V2-V4 BORDERLINE ECG Compared to ECG 03/09/2024 06:25:25 Possible ischemia no longer present Electronically Signed On 03-10-2024 13:31:18 CDT by Tay Mcdonald D.O.
--- NOTE | 2024-03-10 09:00 | PM.CNCAR ---
Assessment and Plan Assessment and plan (1) Elevated troponin: Code(s): R79.89 - Other specified abnormal findings of blood chemistry Status: Acute Assessment and Plan: Initial troponin <0.012, subsequent mild elevation to 0.058, 0.061. Troponin mildly elevated in the setting of DKA, lactic acidosis, HTN. She denies any anginal symptoms. She certainly has risk factors for coronary disease, cannot rule out underlying CAD. Echo shows normal LVEF, no WMA. Discussed outpatient ischemic evaluation with either stress testing or CCTA. (2) Abnormal EKG: Code(s): R94.31 - Abnormal electrocardiogram [ECG] [EKG] Status: Acute Assessment and Plan: Anterolateral ST depression on initial EKG. Repeat EKG now. As above. (3) Hyperlipidemia: Code(s): E78.5 - Hyperlipidemia, unspecified Status: Acute Assessment and Plan: Continue statin (4) Essential hypertension: Code(s): I10 - Essential (primary) hypertension Status: Acute Assessment and Plan: Increase losartan to 100mg daily (5) Sepsis: Code(s): A41.9 - Sepsis, unspecified organism Status: Acute Assessment and Plan: Per hospitalist (6) Diabetes mellitus: Code(s): E11.9 - Type 2 diabetes mellitus without complications Status: Acute Assessment and Plan: Management per hospitalist History of Present Illness History of Present Illness Consult date/time: 03/10/24 09:00 Requesting physician: Iram Allen MD Consult reason: Other (EKG changes, elevated troponin) Reason For Visit: AMS/Hyperglycemia/Sepsis/Uterine Abnormality Narrative: Camila Sung is a 78 year old female with type 2 diabetes who presented to [facility] with altered mental status and was found to be in DKA. Cardiology is consulted because of EKG changes and elevated troponin. She denies any cardiac history. She is not having any chest pain, no history of chest pain. Denies any shortness of breath, palpitations, edema, orthopnea. Echocardiogram performed yesterday shows normal LV function. She did have a mild rise in her troponin and EKG shows anterolateral ST depression. At the time of my evaluation she is resting comfortably in bed eating breakfast and has no complaints. Review of Systems Review of Systems: All systems reviewed & are unremarkable except as noted in HPI and below PMFSH Past Medical History Medical History Diabetes mellitus Social History Social History Spiritual care concerns: No Meds Home Medications and Allergies Home Medications Medication Instructions Recorded Confirmed Type atorvastatin 10 mg tablet 10 mg PO DAILY 03/09/24 03/09/24 History insulin glargine 100 unit/mL (3 10 unit subcut HS 03/09/24 03/09/24 History mL) subcutaneous pen (Lantus Solostar U-100 Insulin) insulin lispro 100 unit/mL 3 unit subcut TIDWM 03/09/24 03/09/24 History subcutaneous pen (Humalog KwikPen (U-100) Insulin) losartan 100 mg tablet 50 mg PO DAILY 03/09/24 03/09/24 History Allergies Allergy/AdvReac Type Severity Reaction Status Date / Time No Known Allergies Allergy Verified 03/09/24 07:17 Vital Signs Vital Signs - 24 hr 03/09/24 09:56 03/09/24 10:45 03/09/24 11:44 Temperature 37.0 C 39.1 C H Pulse Rate 112 H 105 H Respiratory Rate 23 H 24 H Blood Pressure 140/74 138/64 Pulse Oximetry 98 99 99 Oxygen Delivery Room Air 03/09/24 12:00 03/09/24 12:00 03/09/24 14:00 Temperature 38.4 C H Pulse Rate 105 H 104 H 102 H Respiratory Rate 20 Blood Pressure 154/59 H Pulse Oximetry 100 Oxygen Delivery 03/09/24 14:00 03/09/24 16:00 03/09/24 16:00 Temperature 38.1 C H Pulse Rate 102 H 80 Respiratory Rate 16 Blood Pressure 144/71 H Pulse Oximetry 100 99 Oxygen Delivery Room Air 03/09/24
[2024-03-10] MEDS: ATORVASTATIN 10 MG TABLET PO (09:02)
[2024-03-10] MEDS: POTASSIUM CHLORIDE 20 MEQ ER TABLET 40 MEQ PO (09:02)
[2024-03-10] MEDS: LOSARTAN POTASSIUM 50 MG TABLET PO (09:03)
[2024-03-10] MEDS: ENOXAPARIN 40 MG/0.4 ML SYRINGE SUB-Q (09:03)
[2024-03-10] MEDS: PANTOPRAZOLE SODIUM IV 40 MG VIAL IV PUSH (09:03)
[2024-03-10] MEDS: CEFEPIME 1 GM/NS 50 ML 1 GM/50 ML BAG IVPB ×2 (09:10→22:08)
[2024-03-10] MEDS: VANCOMYCIN 1,500 MG/NS 500 ML 1,500 MG/500 ML BAG 250 MG IVPB (09:10)
[2024-03-10 12:17] LABS: Glucose Point of Care 344 mg/dl (65-105)
--- NOTE | 2024-03-10 15:03 | ECG_ITS ---
Test Date: 2024-03-10 15:25:46 Measurements Intervals [place] Rate: 66 P: 6 CT: 147 QRS: 7 QRSD: 97 T: 10 QT: 387 QTc: 408 Interpretive Statements SINUS RHYTHM NONSPECIFIC T-WAVE ABNORMALITY- ANTEROLATERAL LEADS BORDERLINE ECG Compared to ECG 03/10/2024 10:03:04 NO SIGNIFICANT CHANGE Electronically Signed On 03-10-2024 15:30:26 CDT by Tay Mcdonald D.O.
--- NOTE | 2024-03-10 15:20 | PM.IMPN ---
Progress Note: A&P Assessment and Plan (1) Sepsis: Code(s): A41.9 - Sepsis, unspecified organism Status: Acute (2) Uterine mass: Code(s): N85.8 - Other specified noninflammatory disorders of uterus Status: Acute (3) DKA (diabetic ketoacidosis): Code(s): E11.10 - Type 2 diabetes mellitus with ketoacidosis without coma Status: Acute (4) ROSALIND (acute kidney injury): Code(s): N17.9 - Acute kidney failure, unspecified Status: Acute (5) Altered mental status: Code(s): R41.82 - Altered mental status, unspecified Status: Acute Plan [age]-year-old female presented to the ER with altered mental status. Patient diabetic and less with the sister. EMS was called a sister found her more confused and was unable to give her her insulin. Her glucose stick by EMS was 590. Patient was irritative and combative in the ER. She was tachycardic and hypertensive and febrile. Laboratory evaluation showed normal WBC hemoglobin was 12.5 blood sugar on BMP was 750. Mildly hyponatremic at 1:32 a.m. acidotic at 13 creatinine 1.3. Lactic acid was 5.9. Was 4.1. Most of the history is taken from medical records patient received IV fluid bolus and started on IV insulin and was admitted to the ICU for further treatment. Insulin order as per protocol . Gap has closed and has been transition to Lantus lispro. Adjust insulin as needed. Hemoglobin A1c more than 14. Altered mental status: CT head was negative. Started on Precedex for agitation. And physical restraints On 03/09/2024. UDS negative And much improved today. ROSALIND mild continue IV fluid. Resolved Uterine mass as seen on CT so scan pelvic ultrasound With findings of right adnexal mass measuring 4.1 x 3.8 x 3.5 cm. Calcification is seen in the mass. Thickened endometrium. Gynecology has been consulted follow-up as an outpatient basis Sepsis met criteria with elevated lactic acidosis tachycardia and fever. No clear source. UA is negative. CT chest abdomen pelvis negative for any procalcitonin was level was low. Empiric antibiotics was ordered with vancomycin and cefepime. Nasal MRSA swab was positive. influenza, RSV COVID negative Elevated troponin cardiology consulted. Echo with LVEF normal no wall motion abnormality. follow-up as an outpatient basis DVT prophylaxis Lovenox Code status DNR DNI. Subjective Date/time seen: 03/10/24 15:20 Interval history: remains afebrile overnight more alert and oriented being transferred out of the ICU. Off insulin drip since yesterday. Labs reviewed. Review of Systems Review of Systems: All systems reviewed & are unremarkable except as noted in HPI and below Exam Narrative: General: Patient is awake, alert, calm, in no acute distress Lungs/Chest: Trachea central Clear BS B/L, No crackles or wheezing. Cardiac: Regular rate and rhythm, Normal S1 S2. No murmurs Circulation: Pedal pulses are intact and symmetrical. Abdomen: Normal bowel sounds.. Obese Soft. NT. ND. Extremities: No clubbing, cyanosis or edema. Warm : Dougherty in place Neurologic: Patient is awake, alert, oriented, able to answer questions appropriately, follows simple commands in all extremities Psych: Normal mentation and affect Objective Data Vital Signs Vital Signs: Vital Signs - 24 hr 03/09/24 16:00 03/09/24 16:00 03/09/24 16:00 Temperature 99.9 F H Pulse Rate 80 80 Respiratory Rate 16 Blood Pressure 146/66 H Pulse Oximetry 99 100 Oxygen Delivery Room Air Fraction of Inspired Oxygen 03/09/24 18:00 03/09/24 18:00 03/09/24 20:00 Temperature 99.4 F 99.2 F Pulse Rate 76 76 74 Respiratory Rate 16 20 Blood Pressure 134/64 149/62 H Pulse Oximetry 100 100 Oxygen Delivery Fraction of Inspired Oxygen 03/09/24 22:00 03/09/24 22:00 03/09/24 20:00 Temperature 99 F Pulse Rate 68 68 75 Respiratory Rate 20 Blood Pressure 141/55 H Pulse Oximetry 99 Oxygen Delivery
--- NOTE | 2024-03-10 15:59 | WPDCN ---
Assessment and Plan Assessment and plan (1) Adnexal mass: Code(s): N94.89 - Other specified conditions associated with female genital organs and menstrual cycle Status: Acute Assessment and Plan: This adnexal mass most likely consistent with either an ovarian dermoid, which would be benign, or uterine fibroid with calcification, also benign. To further evaluate and delineate which is more likely MRI of the pelvis would be reasonable as a next step. This can be performed while in-house or as an outpatient when she has been discharged. As patient is DNR/ DNI, a discussion would need to be had prior to any significant intervention whether she desires to proceed with any type of operative management or operative evaluation. less likely this adnexal mass might be a cervical malignancy the would expect there to be bleeding of some note if this were the case. When she presents post discharge to the office will also perform a pelvic exam with Pap smear if able. (2) Endometrial thickening on ultrasound: Code(s): R93.89 - Abnormal findings on diagnostic imaging of other specified body structures Status: Acute Assessment and Plan: well this thickened endometrial cavity a 15mm is certainly abnormal, in the absence of any significant bleeding or pain would doubt any significant abnormality. That being said it certainly should be evaluated with tissue sampling or least conversation needs to be had regarding whether she would like to proceed with this or not. I discussed the patient that if this needs to be looked into we will do this on an outpatient basis after she has been discharged. HPI Data of Consult Date/Time: 03/10/24 15:59 Requesting Physician: Zay Eckert MD Primary Care Provider: UNKNOWN,DOCTOR Consult Narrative Narrative: Camila Sung is a 78 year old nulligravid female admitted with diagnosis of sepsis, DKA, altered mental status. As part of her evaluation CT scan and ultrasound revealed a right adnexal mass of [id number] as well as endometrial hypertrophy. Patient is a poor historian but does relate that her last gynecologic exam was well over 30 years ago, and in the interim has had no pelvic pain or abnormal vaginal bleeding. Also does not recall ever having any abnormal imaging or Pap smears in the past though as noted above is been many years since her last exam. FOR[facility]LY [facility], [facility] Past Medical History Medical History Diabetes mellitus Social History Social History Spiritual care concerns: No Meds Home Medications and Allergies Home Medications Medication Instructions Recorded Confirmed Type atorvastatin 10 mg tablet 10 mg PO DAILY 03/09/24 03/09/24 History insulin glargine 100 unit/mL (3 10 unit subcut HS 03/09/24 03/09/24 History mL) subcutaneous pen (Lantus Solostar U-100 Insulin) insulin lispro 100 unit/mL 3 unit subcut TIDWM 03/09/24 03/09/24 History subcutaneous pen (Humalog KwikPen (U-100) Insulin) losartan 100 mg tablet 50 mg PO DAILY 03/09/24 03/09/24 History Allergies Allergy/AdvReac Type Severity Reaction Status Date / Time No Known Allergies Allergy Verified 03/09/24 07:17 Vital Signs Vital Signs - 24 hr 03/09/24 16:00 03/09/24 16:00 03/09/24 16:00 Temperature 99.9 F H Pulse Rate 80 80 Respiratory Rate 16 Blood Pressure 146/66 H Pulse Oximetry 99 100 Oxygen Delivery Room Air Fraction of Inspired Oxygen 03/09/24 18:00 03/09/24 18:00 03/09/24 20:00 Temperature 99.4 F 99.2 F Pulse Rate 76 76 74 Respiratory Rate 16 20 Blood Pressure 134/64 149/62 H Pulse Oximetry 100 100 Oxygen Delivery Fraction of Inspired Oxygen 03/09/24 22:00 03/09/24 22:00 03/09/24 20:00 Temperature 99 F Pulse Rate 68 68 75 Respiratory Rate 20 Blood Pressure 141/55 H Pulse Oximetry 99 Oxygen Deliver
[2024-03-10 16:40] LABS: Glucose Point of Care 254 mg/dl (65-105)
--- NOTE | 2024-03-10 18:35 | PC.NURSE ---
This patient, Camila Sung, was transferred to [[id number]] on 03/10/24 at 1835. Personal belongings sent with patient. Report given to [Sonya TYLER]. Appropriate documentation sent with patient.
--- NOTE | 2024-03-10 18:55 | PC.NURSE ---
This patient, Camila Sung, was received from [[id number]] on 03/10/24 at 1835. Patient/family oriented to unit policies and routines
[2024-03-10 21:34] LABS: Glucose Point of Care 190 mg/dl (65-105)
[2024-03-10] MEDS: hydrALAZINE HCL 20 MG/ML VIAL 10 MG IV PUSH (22:09)
[2024-03-10] MEDS: ONDANSETRON INJ 4 MG/2 ML VIAL IV PUSH (22:10)
[2024-03-10] MEDS: INSULIN GLARGINE (*BKC) 100 UNITS/ML 18 UNITS SUB-Q (22:16)
[2024-03-11 06:00] VITALS: BP 152/62; PULSE 76; RESP 18; TEMP 36.9; O2SAT 100
[2024-03-11 07:44] LABS: Glucose Point of Care 362 mg/dl (65-105)
[2024-03-11] MEDS: INSULIN ASPART (*BKC) 100 UNITS/ML SUB-Q ×6 (08:22→16:50)
[2024-03-11] MEDS: ATORVASTATIN 10 MG TABLET PO (08:23)
[2024-03-11] MEDS: LOSARTAN POTASSIUM 100 MG TABLET PO (08:24)
[2024-03-11] MEDS: ENOXAPARIN 40 MG/0.4 ML SYRINGE SUB-Q (08:33)
[2024-03-11] MEDS: PANTOPRAZOLE SODIUM IV 40 MG VIAL IV PUSH (08:34)
[2024-03-11] MEDS: CEFEPIME 1 GM/NS 50 ML 1 GM/50 ML BAG IVPB ×2 (08:34→21:11)
[2024-03-11 09:52] LABS: Basophils Percent Auto 0.7 % (0.2-1.2); Eosinophils Absolute Auto 0.2 K/mm3 (0-0.3); Eosinophils Percent Auto 2.8 % (0-4.4); Hematocrit 35.2 % (37.0-47.0); Hemoglobin 11.2 g/dL (12.0-15.0); Immature Granulocyte Absolute 0.01 K/mm3 (0.00-0.031); Immature Granulocyte Percent A 0.2 % (0-0.5); Lymphocytes Absolute Auto 1.15 K/mm3 (0.9-3.2); Mean Corpuscular HGB Conc 31.8 g/dl (32-36); Mean Corpuscular Hemoglobin 30.8 pg (26-34); Mean Corpuscular Volume 96.7 fl (80-100); Mean Platelet Volume 12.4 fl (7.4-10.4); Monocytes Absolute Auto 0.3 K/mm3 (0.1-0.6); Monocytes Percent Auto 5.5 % (2.6-8.5); Neutrophils Absolute Auto 4.4 K/mm3 (1.3-6.7); Neutrophils Percent Auto 71.8 % (45.5-73.1); Platelet Count Result 181 k/mm3 (150-375); Red Blood Count 3.64 M/mm3 (4.2-5.4); Red Cell Distribution Width 16.2 % (11.5-14.5); White Blood Count 6.1 K/mm3 (4.5-10.0)
[2024-03-11 10:00] LABS: Alanine Aminotransferase 11 U/L (6-35); Albumin Level 3.3 g/dL (3.5-5.1); Alkaline Phosphatase 91 U/L (38-126); Anion Gap 13 mmol/L (4-12); Aspartate Amino Transferase 22 U/L (14-36); Bilirubin,Total 0.6 mg/dL (0.2-1.3); Blood Urea Nitrogen 14 mg/dL (7-17); Calcium 8.3 mg/dL (8.4-10.2); Carbon Dioxide 16 mmol/L (22-30); Chloride 107 mmol/L (98-107); Estimated CRCL calculation 37 ml/min; Estimated Glomerular Filt Rate 48; Glucose 414 mg/dL (65-110); Phosphorus 3.1 mg/dL (2.5-4.5); Potassium 4.5 mmol/L (3.4-5.0); Sodium 136 mmol/L (137-145)
[2024-03-11 10:17] LABS: Vancomycin Trough 14.6 ug/mL (10.0-20.0)
--- NOTE | 2024-03-11 10:42 | PCNFU ---
Nutrition Follow-Up Complete: Food and Nutrition Knowledge Deficit as related to uncontrolled DM as evidenced by HbA1c > 14% Goal: Adequate Intake of at least 75% of meals adhear to DM diet Patient is progressing towards goal. Pt current nutrition is [facility] Nutrition Recommendations: Discontinue Glucerna shake. Patient not interested in supplements. Intakes are good. Last recorded weight is 82.3 kg, no new weight to report. Bowel Motility: +BM reported 03/10 Labs Reviewed:GFR 48, Cr 1.1, Glu 414, Na 136 Meds Noted:Lantus, NovoLog, Lipitor. Skin: WNL Additional Notes: Patient seen today. Tolerated breakfast. Sister present during education, ,discussions regarding diabetic diet. Also interested in outpatient diabetes education. Agree with diet orders. Will monitor weight, labs, skin, oral intake, meds every 7 days.
[2024-03-11] MEDS: VANCOMYCIN 1,750 MG/NS 500 ML 1,750 MG/500 ML BAG 250 MG IVPB (10:45)
--- NOTE | 2024-03-11 11:19 | PM.PNCARD ---
Progress Note: A&P Assessment and Plan (1) Elevated troponin: Code(s): R79.89 - Other specified abnormal findings of blood chemistry Status: Acute Assessment and Plan: Initial troponin <0.012, subsequent mild elevation to 0.058, 0.061. Troponin mildly elevated in the setting of DKA, lactic acidosis, sepsis, HTN. She denies any anginal symptoms. She certainly has risk factors for coronary disease, cannot rule out underlying CAD. Echo shows normal LVEF, no WMA. Initial EKG on presentation showed sinus tachycardia, subtle ST elevation in AVR with mild diffuse ST depressions concerning for possible multivessel coronary artery disease. Subsequent EKGs when patient clinically improved and normal heart rates showed resolution of these ST changes. Discussed outpatient ischemic evaluation with either stress testing or CCTA. Will start ASA 81mg once daily. Increase Atorvastatin to 80mg once daily. Will arrange for outpatient follow up in our clinic. No additional inpatient cardiac evaluation at this time. (2) Hyperlipidemia: Code(s): E78.5 - Hyperlipidemia, unspecified Status: Acute Assessment and Plan: Will increase her Atorvastatin to 80mg once daily. (3) Essential hypertension: Code(s): I10 - Essential (primary) hypertension Status: Acute Assessment and Plan: Continue Losartan. (4) DKA (diabetic ketoacidosis): Code(s): E11.10 - Type 2 diabetes mellitus with ketoacidosis without coma Status: Acute Assessment and Plan: Management as per primary team. (5) Sepsis: Code(s): A41.9 - Sepsis, unspecified organism Status: Acute Assessment and Plan: Management as per primary team. Plan Cardiology will sign off at this time. Please call us back if needed. Subjective Date/time seen: 03/11/24 11:19 Interval history: Reason for visit: Elevated troponin HPI: Camila Sung is a 78 year old female with type 2 diabetes mellitus who presented to [facility] with altered mental status and was found to be in DKA. Cardiology is consulted because of EKG changes and elevated troponin. She denies any cardiac history. She is not having any chest pain, no history of chest pain. Denies any shortness of breath, palpitations, edema, orthopnea. Echocardiogram performed yesterday shows normal LV function. She did have a mild rise in her troponin and EKG shows anterolateral ST depression. At the time of my evaluation she is resting comfortably in bed eating breakfast and has no complaints. Date of service 03/11: She reports she is feeling well. No chest pain or other cardiac symptoms. Review of Systems Review of Systems: All systems reviewed & are unremarkable except as noted in HPI and below (HPI) Exam Const: General: comfortable and no acute distress HENMT: Mouth: Yes moist mucous membranes Eyes: General: appearance normal, both eyes and all related structures Sclera: sclerae normal Resp: Effort & Inspection: normal respiratory effort Cardio: Rate: regular rate Rhythm: regular rhythm Skin: General skin exam: normal color Neuro: Speech: normal speech Psych: Mental Status: mental status grossly normal Affect: normal affect Objective Data Vital Signs Vital Signs: Vital Signs - 24 hr 03/10/24 16:00 03/10/24 18:35 03/10/24 18:42 Temperature 37.1 C 36.2 C L Pulse Rate 68 83 Respiratory Rate 20 18 Blood Pressure 159/70 H 168/66 H Pulse Oximetry 100 100 Oxygen Delivery Room Air 03/10/24 21:37 03/10/24 20:00 03/11/24 06:00 Temperature 36.4 C 36.9 C Pulse Rate 71 76 Respiratory Rate 18 18 Blood Pressure 177/72 H 152/62 H Pulse Oximetry 99 99 100 Oxygen Delivery Room Air Intake/Output Intake/Output: Intake & Output 03/08/24 03/09/24 03/10/24 03/11/24 23:59 23:59 23:59 23:59 Intake Total 5020.5 960 440 Output Total 400 900 Balance 4620.5 60 440 Meds/Results Medications: Active Me
[2024-03-11 11:47] LABS: Glucose Point of Care 325 mg/dl (65-105)
--- NOTE | 2024-03-11 12:35 | PCPTNOTE ---
On 03/11/24, the student, [Sanjana Velásquez], provided care and completed [facility] documentation on this patient. I have reviewed the student's documentation and agree with the findings.
--- NOTE | 2024-03-11 13:39 | PCCDE ---
Diabetes education f/up: Met with pt and sister Caty today. Caty sts she is out of pen needles and not sure if she has any refills. Caty brought is BG testing supplies. Has been using One Touch Ultra 2 and has lots of test strips for that one . Brought a One Touch Verio Reflect meter but out of test strips. Also brought a brand new in box Dexcom G7 Gas Main Fitter but sts didn't get the sensors. Caty c/o they do not have transportation and getting a bus to [place] for the doctor and even the pharmacy is difficult. She has already received a list of [facility] doctors from intensive care specialist. Also suggested to try [facility] in [place] since she lives in [place] and this is on busline. RN was in room and will discuss pharmacy delivery options with intensive care specialist. Assessed insulin knowledge: Caty v/u of types and doses of insulin but she has been giving rapid acting insulin after meals. Educated pt and sister about rapid acting insulin and used TIE (Test BG, take Insulin, the Eat) to help her remember the process for rapid acting insulin. Reviewed causes, sx and tx of hypoglycemia and when to use glucose tabs vs glucagon. Confirms they have glucagon at home. Called [facility] pharmacist and previously there was a problem with a G6 rx but pharmacist said she would have the G7 sensors ready for miner pick today. Went back to visit patient and sister; provided monthly logsheet to record BG and insulin given. Explained sensors are ready for miner pick. Assisted with setting up the ski lift mechanic and instructed her to finish charging ski lift mechanic. Provided ADA book: How to Thrive: A Guide for Your Journey with Diabetes with DM Specialist contact info. Will send request to PCP for OP DSMT and MNT referrals.
[2024-03-11 13:55] VITALS: BP 152/79; PULSE 107; RESP 18; TEMP 36.2; O2SAT 100
[2024-03-11 16:05] LABS: Glucose Point of Care 368 mg/dl (65-105)
[2024-03-11] MEDS: SODIUM CHLORIDE 0.9% IV 1,000 ML 100 ML IV CONT (18:00)
[2024-03-11] MEDS: SODIUM CHLORIDE 0.9% IV 500 ML 999 ML IV CONT (18:02)
[2024-03-11 18:24] LABS: Anion Gap 12 mmol/L (4-12); Blood Urea Nitrogen 15 mg/dL (7-17); Calcium 8.4 mg/dL (8.4-10.2); Carbon Dioxide 12 mmol/L (22-30); Chloride 111 mmol/L (98-107); Estimated CRCL calculation 34 ml/min; Estimated Glomerular Filt Rate 44; Glucose 401 mg/dL (65-110); Potassium 4.1 mmol/L (3.4-5.0); Sodium 135 mmol/L (137-145)
[2024-03-11 18:25] LABS: Lactic Acid Reflex 2.1 mmol/L (0.7-2.0)
--- NOTE | 2024-03-11 19:31 | PM.IMPN ---
Progress Note: A&P Assessment and Plan (1) Sepsis: Code(s): A41.9 - Sepsis, unspecified organism Status: Acute (2) Uterine mass: Code(s): N85.8 - Other specified noninflammatory disorders of uterus Status: Acute (3) DKA (diabetic ketoacidosis): Code(s): E11.10 - Type 2 diabetes mellitus with ketoacidosis without coma Status: Acute (4) ROSALIND (acute kidney injury): Code(s): N17.9 - Acute kidney failure, unspecified Status: Acute (5) Altered mental status: Code(s): R41.82 - Altered mental status, unspecified Status: Acute Plan 78-year-old female presented to the ER with altered mental status. Patient diabetic and less with the sister. EMS was called a sister found her more confused and was unable to give her her insulin. Her glucose stick by EMS was 590. Patient was irritative and combative in the ER. She was tachycardic and hypertensive and febrile. Laboratory evaluation showed normal WBC hemoglobin was 12.5 blood sugar on BMP was 750. Mildly hyponatremic at 1:32 a.m. acidotic at 13 creatinine 1.3. Lactic acid was 5.9. Was 4.1. Most of the history is taken from medical records patient received IV fluid bolus and started on IV insulin and was admitted to the ICU for further treatment. Insulin order as per protocol . Gap has closed and has been transition to Lantus lispro. Adjust insulin as needed. Hemoglobin A1c more than 14. Altered mental status: CT head was negative. Started on Precedex for agitation. And physical restraints On 03/09/2024. UDS negative And much improved today. ROSALIND mild continue IV fluid. Resolved Uterine mass as seen on CT so scan pelvic ultrasound With findings of right adnexal mass measuring 4.1 x 3.8 x 3.5 cm. Calcification is seen in the mass. Thickened endometrium. Gynecology has been consulted follow-up as an outpatient basis Sepsis met criteria with elevated lactic acidosis tachycardia and fever. No clear source. UA is negative. CT chest abdomen pelvis negative for any procalcitonin was level was low. Empiric antibiotics was ordered with vancomycin and cefepime. Nasal MRSA swab was positive. influenza, RSV COVID negative Elevated troponin cardiology consulted. Echo with LVEF normal no wall motion abnormality. follow-up as an outpatient basis 03/11/24 -lab work was drawn later in the morning she had metabolic acidosis with bicarb was 16. Glucose is poorly controlled. Will advance her insulin regiment. Check lactic acid. Check beta hydroxybutyrate. Start IV fluids. Increased glucose checks. So far not symptomatic from the acidosis. Patient remains on IV antibiotics for sepsis but unclear source. Blood cultures remain negative. As400 Developer input appreciated. Add oral bicarb DVT prophylaxis Lovenox Code status DNR DNI. Subjective Date/time seen: 03/11/24 19:31 Interval history: 78yo female with DM here for AMS. Assuming care. Chart reviewed. No problems overnight. No chest pain or shortness a breath. No nausea or vomiting. Exam Narrative: AF 152/79 107 100% ra Gen - NARD Chest - CTA bilaterally, nml RR CV - RRR S1/S2 Abd - Soft, NT/ND, Positive BS Ext - No pedal edema Neuro - Alert/confused Psych - Nml mood and affect Skin - Warm and dry Objective Data Vital Signs Vital Signs: Vital Signs - 24 hr 03/10/24 21:37 03/10/24 20:00 03/11/24 06:00 Temperature 97.6 F 98.4 F Pulse Rate 71 76 Respiratory Rate 18 18 Blood Pressure 177/72 H 152/62 H Pulse Oximetry 99 99 100 Oxygen Delivery Room Air 03/11/24 11:26 03/11/24 08:20 03/11/24 13:55 Temperature 97.2 F L Pulse Rate 107 H Respiratory Rate 18 Blood Pressure 152/79 H Pulse Oximetry 100 Oxygen Delivery Room Air Room Air Intake/Output Intake/Output: Intake & Output 03/08/24 03/09/24 03/10/24 03/11/24 23:59 23:59 23:59 23:59 Intake Total 5020.5 960 1350 Output Total 400 900 Balance 4620.5 60 1350 M
[2024-03-11 19:41] LABS: Glucose Point of Care 343 mg/dl (65-105)
[2024-03-11 21:12] LABS: Reflex Lactic Acid Yes or No Add Lactic
[2024-03-11] MEDS: SODIUM BICARBONATE TAB 650 MG TABLET PO (21:16)
[2024-03-11] MEDS: INSULIN GLARGINE (*BKC) 100 UNITS/ML 25 UNITS SUB-Q (21:17)
[2024-03-11 21:57] VITALS: BP 153/58; PULSE 79; RESP 18; TEMP 36.8; O2SAT 100
[2024-03-11 22:03] LABS: Lactic Acid 1.4 mmol/L (0.7-2.0)
[2024-03-11 23:45] LABS: Glucose Point of Care 343 mg/dl (65-105)
[2024-03-12] MEDS: SODIUM CHLORIDE 0.9% IV 1,000 ML 100 ML IV CONT ×2 (03:03→16:40)
[2024-03-12 04:05] LABS: Glucose Point of Care 310 mg/dl (65-105)
[2024-03-12 05:38] VITALS: BP 161/59; PULSE 73; RESP 18; TEMP 36.2; O2SAT 100
[2024-03-12 06:31] LABS: Basophils Absolute Auto 0.1 K/mm3 (0.0-0.1); Eosinophils Absolute Auto 0.3 K/mm3 (0-0.3); Hematocrit 30.7 % (37.0-47.0); Hemoglobin 9.5 g/dL (12.0-15.0); Immature Granulocyte Absolute 0.02 K/mm3 (0.00-0.031); Immature Granulocyte Percent A 0.4 % (0-0.5); Lymphocytes Percent Auto 30.7 % (18.3-44.2); Mean Corpuscular HGB Conc 30.9 g/dl (32-36); Mean Corpuscular Hemoglobin 29.9 pg (26-34); Mean Corpuscular Volume 96.5 fl (80-100); Mean Platelet Volume 12.9 fl (7.4-10.4); Monocytes Absolute Auto 0.5 K/mm3 (0.1-0.6); Monocytes Percent Auto 8.6 % (2.6-8.5); Neutrophils Absolute Auto 2.8 K/mm3 (1.3-6.7); Neutrophils Percent Auto 54.3 % (45.5-73.1); Platelet Count Result 153 k/mm3 (150-375); Red Blood Count 3.18 M/mm3 (4.2-5.4); Red Cell Distribution Width 16.1 % (11.5-14.5); White Blood Count 5.2 K/mm3 (4.5-10.0)
[2024-03-12 06:43] LABS: Alanine Aminotransferase 8 U/L (6-35); Albumin Level 2.6 g/dL (3.5-5.1); Alkaline Phosphatase 87 U/L (38-126); Anion Gap 8 mmol/L (4-12); Aspartate Amino Transferase 16 U/L (14-36); Bilirubin,Total 0.4 mg/dL (0.2-1.3); Blood Urea Nitrogen 14 mg/dL (7-17); Carbon Dioxide 17 mmol/L (22-30); Chloride 111 mmol/L (98-107); Estimated CRCL calculation 35 ml/min; Estimated Glomerular Filt Rate 44; Glucose 310 mg/dL (65-110); Phosphorus 2.9 mg/dL (2.5-4.5); Potassium 3.9 mmol/L (3.4-5.0); Sodium 136 mmol/L (137-145)
[2024-03-12 07:43] LABS: Glucose Point of Care 280 mg/dl (65-105)
[2024-03-12] MEDS: INSULIN ASPART (*BKC) 100 UNITS/ML 6 UNITS SUB-Q ×3 (08:22→16:41)
[2024-03-12] MEDS: INSULIN ASPART (*BKC) 100 UNITS/ML SUB-Q ×3 (08:23→16:41)
[2024-03-12] MEDS: ATORVASTATIN 40 MG TABLET 80 MG PO (08:23)
[2024-03-12] MEDS: SODIUM BICARBONATE TAB 650 MG TABLET PO ×2 (08:23→16:41)
[2024-03-12] MEDS: CEFEPIME 1 GM/NS 50 ML 1 GM/50 ML BAG IVPB (08:24)
[2024-03-12] MEDS: PANTOPRAZOLE 40 MG TABLET PO (08:24)
[2024-03-12] MEDS: LOSARTAN POTASSIUM 100 MG TABLET PO (08:24)
[2024-03-12] MEDS: ASPIRIN 81 MG ENTERIC TABLET PO (08:24)
[2024-03-12] MEDS: ENOXAPARIN 40 MG/0.4 ML SYRINGE SUB-Q (09:07)
[2024-03-12] MEDS: VANCOMYCIN 1,750 MG/NS 500 ML 1,750 MG/500 ML BAG 250 MG IVPB (11:29)
[2024-03-12 11:46] LABS: Glucose Point of Care 305 mg/dl (65-105)
--- NOTE | 2024-03-12 11:50 | PM.IMPN ---
Progress Note: A&P Assessment and Plan (1) DKA (diabetic ketoacidosis): Code(s): E11.10 - Type 2 diabetes mellitus with ketoacidosis without coma Status: Acute Assessment and Plan: Patient presents with AMS. She was irritative and combative in the ER. Glucose 750 with bicarb 13 (AG 23) and BHOP 4.14. She was admitted to ICU on DKA protocol. Glucose improved and gap closed. She was transitioned to her home insulin regiment Bicarb worsened to 12 but normal gap. Glucose poorly controlled. Lactic acid was 2.1 ->1.4. BHOP 0.9 Insulin advanced. IV fluids started. Bicarb better at 17 with normal gap. Glucose better. Follow (2) Sepsis: Code(s): A41.9 - Sepsis, unspecified organism Status: Acute Assessment and Plan: Patient was tachycardic and febrile with elevated lactic. CXR clear. CT Ch/A/P showing prominent fluid distention versus thickening of the endometrial stripe/cavity, a 3.6 cm hypodense right-sided uterine mass versus adnexal lesion and small bilateral nonobstructing renal stones. UA noted but did not prompt a culture. BCx negative to date Patient started on antibiotics with cefepime and vancomycin (03/09) Will deescalate since blood cultures remained negative. (3) Uterine mass: Code(s): N85.8 - Other specified noninflammatory disorders of uterus Status: Acute Assessment and Plan: CT A/P showing prominent fluid distention versus thickening of the endometrial stripe/cavity and a 3.6 cm hypodense right-sided uterine mass versus adnexal lesion Pelvic US showing right adnexal mass measuring 4.1cm. Calcification is seen in the mass. The mass appears near to the cervix. Thickened endometrium noted. 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 Plan for patient to follow up with CHIEF DESIGN ENGINEER after discharge. (4) ROSALIND (acute kidney injury): Code(s): N17.9 - Acute kidney failure, unspecified Status: Acute Assessment and Plan: Cr 1.3 on admission but improved with IV fluids. Cr worsened yesterday and feel related to dehydration from her hyperglycemia causing an osmotic diuresis. Cr about the same today Follow (5) Altered mental status: Code(s): R41.82 - Altered mental status, unspecified Status: Acute Assessment and Plan: Patient alert and appropriate but remains confused CT brain showing no acute findings but does show atrophy. TSH normal. Check B12/folate, RPR, Vit D (6) Diabetes mellitus: Code(s): E11.9 - Type 2 diabetes mellitus without complications Status: Acute Assessment and Plan: A1c >14. As above Plan Anemia - Hgb normal on admission but worsens with IV fluids. Follow DVT prophylaxis Lovenox Code status DNR DNI. Subjective Date/time seen: 03/12/24 11:50 Interval history: 78yo female with DM here for AMS. No chest pain or shortness of breath. No nausea or vomiting. She slept well. She has been up walking in the room. Exam Narrative: AF 97.1 161/59 73 18 100% ra Gen - NARD Chest - CTA bilaterally, nml RR CV - RRR S1/S2 Abd - Soft, NT/ND, Positive BS Ext - No pedal edema Neuro - Alert, confused. Oriented to location but not date of Mary name or . She states 'I don't read or write'. Psych - Nml mood and affect Skin - Warm and dry Objective Data Vital Signs Vital Signs: Vital Signs - 24 hr 03/11/24 13:55 03/11/24 21:57 03/11/24 20:00 Temperature 97.2 F L 98.3 F Pulse Rate 107 H 79 Respiratory Rate 18 18 Blood Pressure 152/79 H 153/58 H Pulse Oximetry 100 100 Oxygen Delivery Room Air 03/12/24 05:38 Temperature 97.1 F L Pulse Rate 73 Respiratory Rate 18 Blood Pressure 161/59 H Pulse Oximetry 100 Oxygen Delivery Intake/Output Intake/Output: Intake & Output 03/09/24 03/10/24 03/11/24 03/12/24 23:59 23:59 23:59 23:59 Intake Total 5020.5 960 1400 1560 Output Total 400 900 Yadira
[2024-03-12 13:41] LABS: Vitamin D 25 Hydroxy < 12.8 ng/mL
[2024-03-12 14:00] VITALS: BP 174/67; PULSE 71; RESP 18; TEMP 35.9; O2SAT 100
[2024-03-12 14:28] LABS: Folic Acid 9.6 ng/mL (2.76->20); Vitamin B12 < 159.0 pg/mL (239-931)
[2024-03-12 16:04] LABS: Glucose Point of Care 258 mg/dl (65-105)
[2024-03-12 16:18] LABS: Anion Gap 8 mmol/L (4-12); Blood Urea Nitrogen 14 mg/dL (7-17); Calcium 7.9 mg/dL (8.4-10.2); Carbon Dioxide 18 mmol/L (22-30); Chloride 111 mmol/L (98-107); Estimated CRCL calculation 35 ml/min; Estimated Glomerular Filt Rate 44; Glucose 305 mg/dL (65-110); Sodium 137 mmol/L (137-145)
[2024-03-12 18:23] LABS: Rapid Plasma Reagin Non-Reactive (NonReactive)
[2024-03-12 19:42] LABS: Glucose Point of Care 205 mg/dl (65-105)
[2024-03-12 20:45] VITALS: BP 164/62; PULSE 83; RESP 20; TEMP 36.3; O2SAT 100
[2024-03-12] MEDS: INSULIN GLARGINE (*BKC) 100 UNITS/ML 30 UNITS SUB-Q (21:01)
[2024-03-12] MEDS: CYANOCOBALAMIN INJ 1,000 MCG/ML VIAL 1000 MCG IM (21:34)
[2024-03-12 23:40] LABS: Glucose Point of Care 232 mg/dl (65-105)
[2024-03-13 04:34] LABS: Glucose Point of Care 234 mg/dl (65-105)
[2024-03-13] MEDS: SODIUM CHLORIDE 0.9% IV 1,000 ML 100 ML IV CONT (04:55)
[2024-03-13 05:43] VITALS: BP 165/60; PULSE 69; RESP 16; TEMP 36.2; O2SAT 100
[2024-03-13 06:27] LABS: Basophils Percent Auto 0.8 % (0.2-1.2); Eosinophils Absolute Auto 0.3 K/mm3 (0-0.3); Eosinophils Percent Auto 6.2 % (0-4.4); Hematocrit 30.2 % (37.0-47.0); Hemoglobin 9.4 g/dL (12.0-15.0); Immature Granulocyte Absolute 0.02 K/mm3 (0.00-0.031); Immature Granulocyte Percent A 0.4 % (0-0.5); Lymphocytes Absolute Auto 1.27 K/mm3 (0.9-3.2); Lymphocytes Percent Auto 24.7 % (18.3-44.2); Mean Corpuscular HGB Conc 31.1 g/dl (32-36); Mean Corpuscular Volume 96.5 fl (80-100); Mean Platelet Volume 11.8 fl (7.4-10.4); Monocytes Absolute Auto 0.4 K/mm3 (0.1-0.6); Monocytes Percent Auto 7.6 % (2.6-8.5); Neutrophils Absolute Auto 3.1 K/mm3 (1.3-6.7); Neutrophils Percent Auto 60.3 % (45.5-73.1); Platelet Count Result 160 k/mm3 (150-375); Red Blood Count 3.13 M/mm3 (4.2-5.4); Red Cell Distribution Width 16.3 % (11.5-14.5); White Blood Count 5.1 K/mm3 (4.5-10.0)
[2024-03-13 06:36] LABS: Alanine Aminotransferase 9 U/L (6-35); Albumin Level 2.7 g/dL (3.5-5.1); Alkaline Phosphatase 73 U/L (38-126); Anion Gap 6 mmol/L (4-12); Aspartate Amino Transferase 20 U/L (14-36); Bilirubin,Total 0.3 mg/dL (0.2-1.3); Blood Urea Nitrogen 13 mg/dL (7-17); Calcium 8.1 mg/dL (8.4-10.2); Carbon Dioxide 17 mmol/L (22-30); Chloride 113 mmol/L (98-107); Estimated CRCL calculation 42 ml/min; Estimated Glomerular Filt Rate 54; Glucose 242 mg/dL (65-110); Phosphorus 2.7 mg/dL (2.5-4.5); Potassium 3.8 mmol/L (3.4-5.0); Sodium 136 mmol/L (137-145)
[2024-03-13 08:01] LABS: Glucose Point of Care 235 mg/dl (65-105)
[2024-03-13] MEDS: LOSARTAN POTASSIUM 100 MG TABLET PO (08:19)
[2024-03-13] MEDS: ACETAMINOPHEN 325 MG TABLET 650 MG PO (08:19)
[2024-03-13] MEDS: PANTOPRAZOLE 40 MG TABLET PO (08:20)
[2024-03-13] MEDS: ASPIRIN 81 MG ENTERIC TABLET PO (08:20)
[2024-03-13] MEDS: CHOLECALCIFEROL 1,000 UNITS TABLET 1000 UNITS PO (08:20)
[2024-03-13] MEDS: ENOXAPARIN 40 MG/0.4 ML SYRINGE SUB-Q (08:20)
[2024-03-13] MEDS: ATORVASTATIN 40 MG TABLET 80 MG PO (08:20)
[2024-03-13] MEDS: CYANOCOBALAMIN 1,000 MCG TABLET 1000 MCG PO (08:20)
[2024-03-13] MEDS: CYANOCOBALAMIN INJ 1,000 MCG/ML VIAL 1000 MCG IM (08:20)
[2024-03-13] MEDS: SODIUM BICARBONATE TAB 650 MG TABLET PO (08:20)
[2024-03-13] MEDS: INSULIN ASPART (*BKC) 100 UNITS/ML 10 UNITS SUB-Q ×2 (08:21→12:30)
[2024-03-13] MEDS: INSULIN ASPART (*BKC) 100 UNITS/ML SUB-Q (08:22)
[2024-03-13 12:08] LABS: Glucose Point of Care 142 mg/dl (65-105)
--- NOTE | 2024-03-13 12:59 | PM.DS ---
DS: Admitting Diagnosis Discharge Date 03/13/24 Admitting Diagnosis Altered mental status DS: Discharge Diagnosis Discharge Diagnosis (1) DKA (diabetic ketoacidosis): Code(s): E11.10 - Type 2 diabetes mellitus with ketoacidosis without coma Status: Acute (2) SIRS (systemic inflammatory response syndrome): Code(s): R65.10 - Systemic inflammatory response syndrome (SIRS) of non-infectious origin without acute organ dysfunction Status: Acute (3) ROSALIND (acute kidney injury): Code(s): N17.9 - Acute kidney failure, unspecified Status: Acute (4) Altered mental status: Code(s): R41.82 - Altered mental status, unspecified Status: Acute (5) Diabetes mellitus: Code(s): E11.9 - Type 2 diabetes mellitus without complications Status: Acute (6) Anemia: Code(s): D64.9 - Anemia, unspecified Status: Acute (7) B12 deficiency anemia: Code(s): D51.9 - Vitamin B12 deficiency anemia, unspecified Status: Acute (8) Adnexal mass: Code(s): N94.89 - Other specified conditions associated with female genital organs and menstrual cycle Status: Acute (9) Vitamin D deficiency: Code(s): E55.9 - Vitamin D deficiency, unspecified Status: Acute DS: Summary Hospital Course Reason for hospitalization: 78yo female with DM here for AMS. Please see H&P for details. Hospital Course: Patient presents with AMS. She was irritated and combative in the ER. Glucose 750 with bicarb 13 (AG 23) and BHOP 4.14. She was admitted to ICU on DKA protocol. Glucose improved and gap closed. She was transitioned to her home insulin regiment. Bicarb worsened to 12 but normal gap. Glucose poorly controlled. Lactic acid was 2.1 ->1.4. BHOP 0.9. A1c >14. Insulin regiment advanced. Glucose improved. Pilot Captain and Medical Recruiter saw the patient and family. Patient was tachycardic and febrile with elevated lactic. CXR clear. CT Ch/A/P showing prominent fluid distention versus thickening of the endometrial stripe/cavity, a 3.6 cm hypodense right-sided uterine mass versus adnexal lesion and small bilateral nonobstructing renal stones. UA noted but did not prompt a culture. BCx negative to date. Pelvic US showing normal endometrial thickness but did show right adnexal mass. Patient started on antibiotics with cefepime and vancomycin (03/09) for possible sepsis but no obvious source of infections so felt patient had SIRS. Antibiotics were stopped. 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 Plan for patient to follow up with SERVER SUPPORT TECHNICIAN after discharge. Patient with ROSALIND with Cr 1.3 on admission but improved with IV fluids. Cr worsened again felt related to dehydration from her hyperglycemia causing an osmotic diuresis. This improved with IV fluids. Creatinine normal now. Patient remained confused. CT brain showing no acute findings but does show atrophy. TSH, Folate normal. RPR nonreactive. Vit D level <12.9 and this was replaced. B12 <159 and this was replaced as well. She was seen by Cardiology for elevated Troponin. Echo shows normal LVEF, no WMA. Initial EKG on presentation showed sinus tachycardia, subtle ST elevation in AVR with mild diffuse ST depressions concerning for possible multivessel coronary artery disease. Subsequent EKGs when patient clinically improved and normal heart rates showed resolution of these ST changes. Cardiology discussed outpatient ischemic evaluation. ASA started and Atorvastatin increased. She overall did well and was able to be discharged home with family on 03/13/24. The family understood that the patient is unable to care for her self and will need family to monitor the glucose and give the appropriate amount of insulin. Status at Discharge Cognitive/behavioral status at discharge: stable Time Spent with Patient Time attestation: Total time spent providing and/or coordinating discharge services: 35 minutes
== END 2024-03-13 13:50 | disposition home health service (06) | DRG 638 ==
LOC: ANHED 07:26 → ANHICU 09:57 → ANH3MEDSUR 03-10 18:40
PROVIDERS: Emergency Medicine; Internal Medicine; Admitting Provider Internal Medicine; Emergency Provider Emergency Medicine; Visit Provider Internal Medicine
DX: E11.10 Type 2 diabetes mellitus with ketoacidosis without coma (principal); E87.1 Hypo-osmolality and hyponatremia; R65.10 Systemic inflammatory response syndrome (SIRS) of non-infectious origin without acute organ dysfunction; N17.9 Acute kidney failure, unspecified; I10 Essential (primary) hypertension; D64.9 Anemia, unspecified; E55.9 Vitamin D deficiency, unspecified; N85.8 Other specified noninflammatory disorders of uterus; R94.31 Abnormal electrocardiogram [ECG] [EKG]; R79.89 Other specified abnormal findings of blood chemistry; R41.82 Altered mental status, unspecified; Z20.822 Contact with and (suspected) exposure to COVID-19; Z79.4 Long term (current) use of insulin; Z22.322 Carrier or suspected carrier of Methicillin resistant Staphylococcus aureus
CPT/HCPCS: 36415; 70450; 71045; 71260; 74177; 76857; 80048; 80053; 80202; 80307; 81001; 82010; 82306; 82550; 82565; 82607; 82746; 82948; 83036; 83605; 83690; 83735; 84100; 84145; 84443; 84484; 85025; 85055; 85610; 85730; 86592; 87040; 87637; 87641; 93005; 96361; 96365; 96366; 96367; 96372; 96375; 97161; 97165; 99285; A9270; C8929; G0378; J0360; J0692; J1630; J1650; J1815; J2405; J2470; J3370; J3420; J3480; J7030; J7050; J7120; Q9957; Q9967